=== PATIENT | female | born 1995 | race Caucasian/White ===

== ENCOUNTER 2020-06-30 14:51 | Emergency (ER) | payer OTHER ==
[~2020-06-30] VITALS: Ht 172.7 cm; Wt 59.0 kg
[2020-06-30] MEDS ORDERED: PAROXETINE HCL20 MG PO (15:07)
[2020-06-30] MEDS ORDERED: OMEPRAZOLE20 MG PO (15:07)
--- NOTE | 2020-07-01 08:41 | ER ---
[facility] [address] [place], [place] [address] Signed DATE OF SERVICE: 06/30/2020 HISTORY OF PRESENT ILLNESS: The patient is a 25-year-old female, 1, para 0, with LMP of approximately April 23, who was seen in [place] and diagnosed with a missed AB on June 21. They elected observation and she had heavy vaginal bleeding on June 28 with passage of clots and tissue. She had severe cramping at that time as well. Since then, she has had a few episodes of bleeding, which have been fairly heavy, followed by minimal bleeding. She has had occasional mild cramping. She presented to the emergency room today as the bleeding seemed heavier earlier today. They traveled to this area for their marriage, which occurred yesterday. They will be traveling back to [place] tomorrow. REVIEW OF SYSTEMS: Negative for fever and otherwise negative. PAST SURGICAL HISTORY: None. PAST MEDICAL HISTORY: Illnesses; positive for reflux. Positive for anemia for at least the past 2 years. Positive for anxiety with recent change from Paxil to something else, which she does not know this medication. Negative for hypertension, diabetes, heart problems, asthma, migraines, liver or kidney problems. HABITS: Positive for tobacco one-half pack per day. Negative for alcohol or drug use. MEDICATIONS: Omeprazole and an anti-anxiety medication, which is unknown. vitamins and iron. ALLERGIES: No allergies. PHYSICAL EXAMINATION: VITAL SIGNS: Blood pressure is 114/77, pulse 101, temp 99.1. GENERAL: She is a well-developed, well-nourished female, in no acute distress. She is alert and oriented. Her affect is pleasant. PELVIC: The external genitalia normal. The vagina has a very small amount of blood. The cervix is closed. The uterus is approximately 6-week size, firm, nontender. LABORATORY DATA: Electronically Signed By: DIANE TORRE MD 07/01/20 0841 PATIENT NAME: DAYSI RAM EMERGENCY ROOM REPORT DATE OF : [birth year] REPORT #: [id number] PHYSICIAN: DIANE TORRE MD PCP: OTHER PCP REPORT IS CONFIDENTIAL AND NOT TO BE RELEASED WITHOUT AUTHORIZATION [facility] [address] [place], [place] [address] Signed On ultrasound, there is a normal-size uterus. The endometrial cavity has some possible retained products. There is a small 1 to 2 cm AVM in the right posterior uterus. There is a small right ovarian cyst. H and H are 10.9 and 32.1. ABO is pending. IMPRESSION: A 25-year-old female, appears very stable at this time. She may have some retained products, but her bleeding is very minimal and her cervix is closed. 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 I think she is safe for discharge, though she may still require D and C if heavy bleeding recurs and is persistent. PLAN: Discharge home after ABO is known. Follow up with FACILITIES DIRECTOR in [place] as soon as possible. Follow up ultrasound of the uterus for her AVM as well. Precautions reviewed with the patient and and they are accepting of this plan. Diane Torre MD PJW/MODL /[id number] Copies: ~ Electronically Signed By: DIANE TORRE MD 07/01/20 0841 PATIENT NAME: DAYSI RAM EMERGENCY ROOM REPORT DATE OF : [birth year] REPORT #: [id number] PHYSICIAN: DIANE TORRE MD PCP: OTHER PCP REPORT IS CONFIDENTIAL AND NOT TO BE RELEASED WITHOUT AUTHORIZATION
== END 2020-06-30 19:05 | disposition home or self-care (01) ==
LOC: ED 14:51
DX: O03.9 Complete or unspecified spontaneous abortion without complication (principal)
CPT/HCPCS: 76830; 76856; 80053; 84702; 85025; 86900; 86901; 99284-25